=== PATIENT | female | born 1990 | race Caucasian/White ===

== ENCOUNTER 2021-08-07 02:00 | Emergency (ER) | payer SELFPAY ==
[~2021-08-07] VITALS: Ht 170.2 cm; Wt 64.9 kg
[2021-08-07] MEDS: ONDANSETRON ODT 4 MG TAB PO ONE (02:29)
[2021-08-07 03:11] LABS: Urine Bacteria NONE SEEN /hpf (None Seen); Urine Blood Negative /uL (Negative); Urine Mucus FEW (None Seen); Urine Specific Gravity 1.032 (1.001-1.035); Urine WBC 1 /hpf (0 - 5)
[2021-08-07] MEDS: DICYCLOMINE HCL (10MG/ML) 2 ML AMPULE IM ONE (03:14)
[2021-08-07 03:25] LABS: Basophils # (auto) 0 10 ^3/uL (0-0.2); Basophils % (auto) 0.2 % (0.0-2.0); Eosinophils # (auto) 0 10 ^3/uL (0-0.8); Hematocrit 42.9 % (36.0-46.0); Hemoglobin 14.8 g/dL (12.2-16.2); Mean Corpuscular Hgb Conc. 34.5 g/dL (32.0-36.0); Mean Corpuscular Volume 92.8 fL (80.0-100.0); Monocytes # (auto) 0.6 10 ^3/uL (0-1.3); Monocytes % (auto) 3.8 % (0.0-12.0); Neutrophils # (auto) 15.4 10 ^3/uL (1.6-8.6); Red Blood Cells 4.62 10^6/uL (4.0-5.20); Red Cell Distribution Width 13.9 % (11.8-14.3); White Blood Cell 17.1 10^3/uL (4.4-10.8)
[2021-08-07 03:40] LABS: Albumin 4.4 g/dL (3.4-5.0); BUN/Creatinine Ratio 22.5; Calcium 9.7 mg/dL (8.5-10.1); Potassium 4.1 mmol/L (3.5-5.1)
[2021-08-07 03:42] LABS: Bilirubin, Total 0.8 mg/dL (0.2-1.0); Total Protein 7.9 g/dL (6.4-8.2)
[2021-08-07] MEDS: MORPHINE SULFATE 4 MG/ML SYR/VIAL IM ONE (04:44)
[2021-08-07 05:23] VITALS: BP 102/55
== END 2021-08-07 04:28 | disposition home or self-care (01) ==
LOC: ER 02:03
DX: R10.13 Epigastric pain (principal); R11.2 Nausea with vomiting, unspecified; Z90.49 Acquired absence of other specified parts of digestive tract
CPT/HCPCS: 36415; 74176; 80053; 81001; 81025; 83690; 85025; 96372; 99284; J0500; J2270; Q0162

== ENCOUNTER → 2021-10-25 | Emergency (ER) | payer SELFPAY ==
[~2021-10-25] VITALS: Ht 170.2 cm; Wt 61.2 kg
[~2021-10-25] MED LIST: ONDA-144 PO; ONDANSETRON ODT 4 MG TAB PO ONE
[2021-10-25 22:52] VITALS: BP 115/73
== END | disposition home or self-care (01) ==
LOC: ER 22:02
DX: O21.0 Mild hyperemesis gravidarum (principal); Z3A.09 9 weeks gestation of pregnancy; Z90.49 Acquired absence of other specified parts of digestive tract
CPT/HCPCS: 99283; Q0162

== ENCOUNTER 2021-11-10 07:17 | Emergency (ER) | payer SELFPAY ==
[~2021-11-10] VITALS: Ht 170.2 cm; Wt 65.8 kg
[~2021-11-10 07:17] MED LIST changes: -ONDANSETRON ODT 4 MG TAB PO ONE
[2021-11-10 07:24] VITALS: BP 125/72
[2021-11-10 08:19] LABS: Urine Bacteria NONE SEEN /hpf (None Seen); Urine Blood Negative /uL (Negative); Urine Mucus FEW (None Seen); Urine WBC 2 /hpf (0 - 5)
[2021-11-10 08:26] LABS: Basophils # (auto) 0 10 ^3/uL (0-0.2); Basophils % (auto) 0.3 % (0.0-2.0); Eosinophils # (auto) 0.1 10 ^3/uL (0-0.8); Hematocrit 43.3 % (36.0-46.0); Hemoglobin 14.3 g/dL (12.2-16.2); Lymphocytes % (auto) 14.4 % (10.0-50.0); Mean Corpuscular Hemoglobin 31.5 pg (28.0-32.0); Mean Corpuscular Volume 95.6 fL (80.0-100.0); Monocytes % (auto) 7.5 % (0.0-12.0); Neutrophils # (auto) 10.7 10 ^3/uL (1.6-8.6); Neutrophils % (auto) 76.8 % (37.0-80.0); Nucleated Red Blood Cells % 0.1 %; Red Blood Cells 4.53 10^6/uL (4.0-5.20); Red Cell Distribution Width 13.5 % (11.8-14.3)
[2021-11-10 08:38] LABS: BUN/Creatinine Ratio 25.4; Calcium 9.3 mg/dL (8.5-10.1); Potassium 3.8 mmol/L (3.5-5.1)
[2021-11-10 08:40] LABS: Bilirubin, Total 0.4 mg/dL (0.2-1.0); Total Protein 7.4 g/dL (6.4-8.2)
[2021-11-10] MEDS ORDERED: ACETAMINOPHEN 500 MG TAB PO ONE (09:00)
[2021-11-10] MEDS ORDERED: ONDANSETRON ODT 4 MG TAB PO ONE (09:00)
[2021-11-10 09:26] LABS: Alcohol, Urine < 3.0 mg/dL (0-10); Amphetamine Screen, Urine NEGATIVE (NEGATIVE); Barbiturate Scree,Urine NEGATIVE (NEGATIVE); Benzodiazephine Screen, Urine NEGATIVE (NEGATIVE); Cannabinoid Screen, Urine POSITIVE (NEGATIVE); Cocaine Screen, Urine NEGATIVE (NEGATIVE); Opiate Scree,Urine NEGATIVE (NEGATIVE); Phencyclidine Screen, Urine NEGATIVE (NEGATIVE)
[2021-11-10] MEDS ORDERED: PROMETHAZINE HCL 25 MG/ML 1ML ONE (09:28)
[2021-11-10] MEDS ORDERED: PROMETHAZINE HCL 25 MG/ML 1ML IM ONE (09:30)
[2021-11-10] MEDS ORDERED: DICY10CA PO (10:42)
[2021-11-10] MEDS ORDERED: LACT10SO3 PO (10:42)
[2021-11-10] MEDS ORDERED: PROM25TA5 PO (10:42)
[2021-11-10] MEDS ORDERED: ONDA-144 PO (15:43)
== END 2021-11-10 15:44 | disposition home or self-care (01) ==
LOC: ER 07:17
DX: O26.891 Other specified pregnancy related conditions, first trimester (principal); K59.00 Constipation, unspecified; O99.321 Drug use complicating pregnancy, first trimester; F12.90 Cannabis use, unspecified, uncomplicated; Z3A.08 8 weeks gestation of pregnancy
CPT/HCPCS: 36415; 76801; 80053; 80307; 81001; 84702; 85025; 96372; 99284; J2550; Q0162

== ENCOUNTER 2021-11-10 18:13 | Emergency (ER) | payer MEDICAID ==
[~2021-11-10] VITALS: Ht 170.2 cm; Wt 65.8 kg
[~2021-11-10 18:13] MED LIST changes: +DICY10CA PO; +LACT10SO3 PO; +PROM25TA5 PO
[2021-11-10 18:51] VITALS: BP 96/69
== END 2021-11-11 02:39 | disposition left against medical advice (07) ==
LOC: ER 18:13
DX: O21.8 Other vomiting complicating pregnancy (principal); Z3A.08 8 weeks gestation of pregnancy; Z53.21 Procedure and treatment not carried out due to patient leaving prior to being seen by health care provider

== ENCOUNTER 2021-11-25 20:54 | Emergency (ER) | payer MEDICAID ==
[~2021-11-25] VITALS: Ht 170.2 cm; Wt 63.5 kg
[~2021-11-25 20:54] MED LIST changes: -PROM25TA5 PO
[2021-11-25 21:55] VITALS: BP 115/73
[2021-11-25 23:27] LABS: Urine Bacteria FEW /hpf (None Seen); Urine Blood Negative /uL (Negative); Urine Mucus FEW (None Seen); Urine Specific Gravity 1.032 (1.001-1.035); Urine WBC 2 /hpf (0 - 5)
== END 2021-11-26 00:12 | disposition home or self-care (01) ==
LOC: ER 20:54
DX: O20.0 Threatened abortion (principal); R10.30 Lower abdominal pain, unspecified; Z3A.11 11 weeks gestation of pregnancy
CPT/HCPCS: 36415; 76801; 81001; 84702

== ENCOUNTER → 2021-12-11 | Outpatient (CLI) | payer MEDICAID ==
[2021-12-11 10:36] LABS: Basophils # (auto) 0 10 ^3/uL (0-0.2); Basophils % (auto) 0.2 % (0.0-2.0); Eosinophils # (auto) 0.1 10 ^3/uL (0-0.8); Hematocrit 37.7 % (36.0-46.0); Hemoglobin 12.8 g/dL (12.2-16.2); Lymphocytes # (auto) 2.4 10 ^3/uL (0.4-5.4); Lymphocytes % (auto) 18.7 % (10.0-50.0); Mean Corpuscular Hemoglobin 32.1 pg (28.0-32.0); Mean Corpuscular Hgb Conc. 33.9 g/dL (32.0-36.0); Mean Corpuscular Volume 94.8 fL (80.0-100.0); Monocytes # (auto) 1.2 10 ^3/uL (0-1.3); Monocytes % (auto) 9.6 % (0.0-12.0); Neutrophils # (auto) 8.9 10 ^3/uL (1.6-8.6); Neutrophils % (auto) 70.5 % (37.0-80.0); Red Blood Cells 3.98 10^6/uL (4.0-5.20); Red Cell Distribution Width 13.9 % (11.8-14.3); White Blood Cell 12.6 10^3/uL (4.4-10.8)
[2021-12-11 11:08] LABS: Alcohol, Urine < 3.0 mg/dL (0-10); Phencyclidine Screen, Urine NEGATIVE (NEGATIVE)
[2021-12-11 11:16] LABS: Amphetamine Screen, Urine NEGATIVE (NEGATIVE); Barbiturate Scree,Urine NEGATIVE (NEGATIVE); Benzodiazephine Screen, Urine NEGATIVE (NEGATIVE); Cannabinoid Screen, Urine POSITIVE (NEGATIVE); Cocaine Screen, Urine NEGATIVE (NEGATIVE); Opiate Scree,Urine NEGATIVE (NEGATIVE)
[2021-12-12 06:07] LABS: RPR Non Reactive (Non Reactive)
== END | disposition home or self-care (01) ==
LOC: LAB 09:45
PROVIDERS: ATTEND Obstetrics & Gynecology
DX: Z34.00 Encounter for supervision of normal first pregnancy, unspecified trimester (principal); Z31.430 Encounter of female for testing for genetic disease carrier status for procreative management; Z36.0 Encounter for antenatal screening for chromosomal anomalies; N39.0 Urinary tract infection, site not specified
CPT/HCPCS: 36415; 80307; 83036; 84112; 84702; 85025; 86592; 86703; 86762; 86850; 86900; 86901; 87086; 87340

== ENCOUNTER 2022-04-08 01:30 | Observation (INO) | payer MEDICAID ==
[~2022-04-08] VITALS: Ht 160 cm; Wt 77.1 kg
[2022-04-08] MEDS ORDERED: TERBUTALINE SULFATE 1 MG/ML 1ML VIAL SC ONE (03:00)
[2022-04-08] MEDS ORDERED: TERBUTALINE SULFATE 1 MG/ML 1ML VIAL SC SCH (04:30)
== END 2022-04-08 07:14 | disposition home or self-care (01) ==
LOC: LDRP 01:30
PROVIDERS: ADMIT Obstetrics & Gynecology; ATTEND Obstetrics & Gynecology
DX: O62.9 Abnormality of forces of labor, unspecified (principal); O99.891 Other specified diseases and conditions complicating pregnancy; M54.9 Dorsalgia, unspecified; Z3A.30 30 weeks gestation of pregnancy
CPT/HCPCS: 59025; 81002; 96372; G0378; J3105

== ENCOUNTER 2022-05-07 14:04 | Observation (INO) | payer MEDICAID ==
[2022-05-07] MEDS ORDERED: PREN-96 PO (15:07)
== END 2022-05-07 15:20 | disposition home or self-care (01) ==
LOC: LDRP 14:04 → UNDOADMOB 14:04 → LDRP 14:35
PROVIDERS: ADMIT Obstetrics & Gynecology; ATTEND Obstetrics & Gynecology
DX: O60.03 Preterm labor without delivery, third trimester (principal); Z3A.34 34 weeks gestation of pregnancy; Z87.891 Personal history of nicotine dependence
CPT/HCPCS: 59025; 81002; 94760; G0378

== ENCOUNTER 2022-06-06 14:50 | Observation (INO) | payer MEDICAID ==
[~2022-06-06] VITALS: Ht 170.2 cm; Wt 85.7 kg
[~2022-06-06 14:50] MED LIST changes: +PREN-96 PO
[2022-06-06] MEDS ORDERED: LACTATED RINGER'S 1,000 ML IV ONE (16:00)
[2022-06-06 17:37] LABS: Urine Bacteria FEW /hpf (None Seen); Urine Blood Negative /uL (Negative); Urine Mucus FEW (None Seen); Urine Specific Gravity 1.029 (1.001-1.035); Urine WBC 5 /hpf (0 - 5)
[2022-06-06 17:54] LABS: Alcohol, Urine < 3.0 mg/dL (0-10); Amphetamine Screen, Urine NEGATIVE (NEGATIVE); Barbiturate Scree,Urine NEGATIVE (NEGATIVE); Benzodiazephine Screen, Urine NEGATIVE (NEGATIVE); Cannabinoid Screen, Urine POSITIVE (NEGATIVE); Cocaine Screen, Urine NEGATIVE (NEGATIVE)
[2022-06-06 18:01] LABS: Opiate Scree,Urine NEGATIVE (NEGATIVE); Phencyclidine Screen, Urine NEGATIVE (NEGATIVE)
== END 2022-06-06 18:55 | disposition home or self-care (01) ==
LOC: UNDOADMOB 14:50 → LDRP 14:50
PROVIDERS: ADMIT Obstetrics & Gynecology; ATTEND Obstetrics & Gynecology
DX: O62.9 Abnormality of forces of labor, unspecified (principal); O26.893 Other specified pregnancy related conditions, third trimester; N89.8 Other specified noninflammatory disorders of vagina; Z3A.38 38 weeks gestation of pregnancy; Z79.899 Other long term (current) drug therapy
CPT/HCPCS: 59025; 76818; 80307; 81001; 81002; 96360; 96361; G0378

== ENCOUNTER 2022-06-15 03:32 | Inpatient (IN) | payer MEDICAID ==
[~2022-06-15] VITALS: Ht 170.2 cm; Wt 85.7 kg
[2022-06-15] MEDS ORDERED: HYDROcodone-ACET 10/325MG TAB PO ONE (04:30)
[2022-06-15 06:21] LABS: Alcohol, Urine < 3.0 mg/dL (0-10); Amphetamine Screen, Urine NEGATIVE (NEGATIVE); Barbiturate Scree,Urine NEGATIVE (NEGATIVE); Benzodiazephine Screen, Urine NEGATIVE (NEGATIVE); Cannabinoid Screen, Urine POSITIVE (NEGATIVE); Cocaine Screen, Urine NEGATIVE (NEGATIVE); Opiate Scree,Urine NEGATIVE (NEGATIVE); Phencyclidine Screen, Urine NEGATIVE (NEGATIVE)
[2022-06-15] MEDS ORDERED: WITCH HAZEL-GLYCERIN PAD TOP PRN (07:45)
[2022-06-15] MEDS ORDERED: LACT. RINGERS/OXYTOCIN 20UNITS 500 ML IV ONE ×2 (07:45→08:15)
[2022-06-15] MEDS ORDERED: LIDOCAINE 2%HCL (LOCAL ANESTH.) INJ 20ML MDV IJ PRN (07:45)
[2022-06-15] MEDS ORDERED: PROMETHAZINE HCL 25 MG/ML 1ML IV PRN (07:45)
[2022-06-15] MEDS ORDERED: DERMOPLAST 60ML BOTTLE TOP PRN (07:45)
[2022-06-15] MEDS ORDERED: BUTORPHANOL TARTRATE 2 MG/1 ML VIAL IV PRN ×2 (07:45)
[2022-06-15] MEDS ORDERED: PHISODERM TOP SOLN 240ML BTL TOP PRN (07:45)
[2022-06-15] MEDS: LACTATED RINGER'S 1,000 ML IV SCH ×2 (08:33→08:49)
[2022-06-15 08:37] LABS: Basophils # (auto) 0.1 10 ^3/uL (0-0.2); Basophils % (auto) 0.5 % (0.0-2.0); Eosinophils # (auto) 0.3 10 ^3/uL (0-0.8); Eosinophils % (auto) 1.4 % (0.0-7.0); Hematocrit 40.1 % (36.0-46.0); Hemoglobin 13.7 g/dL (12.2-16.2); Lymphocytes # (auto) 3.1 10 ^3/uL (0.4-5.4); Lymphocytes % (auto) 16.8 % (10.0-50.0); Mean Corpuscular Hemoglobin 32.9 pg (28.0-32.0); Mean Corpuscular Volume 96.7 fL (80.0-100.0); Monocytes # (auto) 1.6 10 ^3/uL (0-1.3); Monocytes % (auto) 8.6 % (0.0-12.0); Neutrophils # (auto) 13.4 10 ^3/uL (1.6-8.6); Neutrophils % (auto) 72.7 % (37.0-80.0); Red Blood Cells 4.15 10^6/uL (4.0-5.20); Red Cell Distribution Width 13.7 % (11.8-14.3); White Blood Cell 18.5 10^3/uL (4.4-10.8)
[2022-06-15 08:52] LABS: Albumin 2.7 g/dL (3.4-5.0); Calcium 8.6 mg/dL (8.5-10.1); Uric Acid 4.1 mg/dL (2.6-6.0)
[2022-06-15 08:55] LABS: BUN/Creatinine Ratio 13.3; Bilirubin, Total 0.2 mg/dL (0.2-1.0); Total Protein 6.5 g/dL (6.4-8.2)
[2022-06-15 09:31] LABS: Urine Bacteria NONE SEEN /hpf (None Seen); Urine Blood 3+ /uL (Negative); Urine Specific Gravity 1.015 (1.001-1.035); Urine WBC 4 /hpf (0 - 5)
[2022-06-15] MEDS ORDERED: ONDANSETRON HCL 4 MG/2 ML VIAL IV PRN (09:45)
[2022-06-15] MEDS ORDERED: PROMETHAZINE HCL 25 MG/ML 1ML ONE (09:47)
[2022-06-15 10:20] LABS: INR 0.83 (0.9-1.15); Partial Thromboplastin Time 28.3 sec (24.6-33.4)
[2022-06-15] MEDS ORDERED: fentaNYL CITRATE 100 MCG/2 ML VL IV ONE (10:30)
[2022-06-15] MEDS ORDERED: ePHEDrine SULFATE 50 MG/ML AMP IV ONE (10:30)
[2022-06-15] MEDS ORDERED: ROPIVACAINE HCL 200 ML EPI SCH (10:30)
[2022-06-15] MEDS ORDERED: LIDOCAINE HCL 2 %PF INJ 10ML AMP IJ ONE (10:30)
[2022-06-15] MEDS ORDERED: FAMOTIDINE (10MG/ML) 2ML VL IV PRN (13:00)
[2022-06-15] MEDS: IBUPROFEN 600 MG TAB PO PRN (19:14)
[2022-06-15 19:30] VITALS: BP 122/72
[2022-06-15] MEDS: ACETAMINOPHEN 325 MG TAB PO PRN (21:18)
[2022-06-15] MEDS: DOCUSATE SOD 100 MG CAP PO SCH ×2 (22:15→22:19)
[2022-06-15 23:13] VITALS: BP 97/56
[2022-06-16 03:05] VITALS: BP 95/51
[2022-06-16 07:06] LABS: RPR Non Reactive (Non Reactive)
[2022-06-16 07:15] VITALS: BP 115/73
[2022-06-16] MEDS: IBUPROFEN 600 MG TAB PO PRN (07:32)
[2022-06-16 11:22] VITALS: BP 112/70
[2022-06-16] MEDS ORDERED: TETANUS-DIPTH-ACEL PERTUSSIS 0.5ML SYR Tdap IM ONE (13:15)
[2022-06-16] MEDS: ACETAMINOPHEN 325 MG TAB PO PRN (15:25)
[2022-06-16 19:55] VITALS: BP 136/81
[2022-06-16 20:42] VITALS: BP 136/81
== END 2022-06-16 20:42 | disposition home or self-care (01) | DRG 560 ==
LOC: LDRP 03:32 → OBSVTOIN 07:37 → LDRP 07:51
PROVIDERS: ADMIT Obstetrics & Gynecology; ATTEND Obstetrics & Gynecology
PROC: 10D07Z6 Extraction of Products of Conception, Vacuum, Via Natural or Artificial Opening (ICD-10-PCS; principal; 2022-06-15)
PROC: 0UQGXZZ Repair Vagina, External Approach (ICD-10-PCS; 2022-06-15)
PROC: 3E0R3BZ Introduction of Anesthetic Agent into Spinal Canal, Percutaneous Approach (ICD-10-PCS; 2022-06-15)
PROC: 00HU33Z Insertion of Infusion Device into Spinal Canal, Percutaneous Approach (ICD-10-PCS; 2022-06-15)
PROC: 3E0234Z Introduction of Serum, Toxoid and Vaccine into Muscle, Percutaneous Approach (ICD-10-PCS; 2022-06-16)
DX: O48.0 Post-term pregnancy (principal); Z37.0 Single live birth; O71.4 Obstetric high vaginal laceration alone; O69.81X0 Labor and delivery complicated by cord around neck, without compression, not applicable or unspecified; O76 Abnormality in fetal heart rate and rhythm complicating labor and delivery; Z20.822 Contact with and (suspected) exposure to COVID-19; Z3A.40 40 weeks gestation of pregnancy; Z23 Encounter for immunization
CPT/HCPCS: 36415; 59025; 59409; 62282; 76818; 80053; 80307; 81001; 81002; 84550; 85025; 85610; 85730; 86592; 86850; 86900; 86901; 87426; 90715; 94760; 94762; 96360; 96361; G0378; J2405; J2590; J3490